=== PATIENT | female | born 1955 | race Caucasian/White ===

== ENCOUNTER → 2020-08-02 | Outpatient (CLI) | payer OTHER ==
--- NOTE | 2020-08-04 10:30 | MM ---
Reason for exam: screening (asymptomatic). Last mammogram was performed 2 years and 7 months ago. History: Patient is postmenopausal. Family history of breast cancer in sister at age 51. Physical Findings: A clinical breast exam by your physician is recommended on an annual basis and results should be correlated with mammographic findings. MG Screening Mammo w CAD Bilateral CC and MLO view(s) were taken. Prior study comparison: January 17, 2018, mammogram. December 16, 2015, mammogram. The breast tissue is heterogeneously dense. This may lower the sensitivity of mammography. Stable lateral right CC asymmetric density. Elongated asymmetric density central left MLO appears more defined/new. ASSESSMENT: Incomplete: need additional imaging evaluation, BI-RAD 0 RECOMMENDATION: Special view mammogram of the left breast. (3D) If lesion persists on supplemental views, image directed ultrasound is recommended. [facility] will attempt to contact patient to return for supplemental views and ultrasound if indicated.
== END | disposition home or self-care (01) ==
LOC: RADMAMWWP 12:41
PROVIDERS: ATTEND Family Medicine
DX: Z12.31 Encounter for screening mammogram for malignant neoplasm of breast (principal)
CPT/HCPCS: 77067

== ENCOUNTER → 2020-08-17 | Outpatient (CLI) | payer OTHER ==
--- NOTE | 2020-08-18 09:00 | MM ---
Reason for exam: additional evaluation requested from abnormal screening. Last mammogram was performed less than 1 month ago. History: Patient is postmenopausal. Family history of breast cancer in sister at age 51. Physical Findings: Nurse did not find any significant physical abnormalities on exam. MG Work Up Mamm w CAD LT XCCM and spot compression MLO view(s) were taken of the left breast. Prior study comparison: August 02, 2020, bilateral MG screening mammo w CAD. January 17, 2018, mammogram. The breast tissue is heterogeneously dense. This may lower the sensitivity of mammography. There is no discrete abnormality including area of concern left MLO view. These results were verbally communicated with the patient and result sheet given to the patient on 08/17/20. ASSESSMENT: Probably benign, BI-RAD 3 RECOMMENDATION: Follow-up diagnostic mammogram of the left breast in 6 months.
== END ==
LOC: RADMAMWWP 14:48
PROVIDERS: ATTEND Family Medicine
DX: Z78.0 Asymptomatic menopausal state (principal)
CPT/HCPCS: 77065

== ENCOUNTER → 2020-09-27 | Day surgery (SDC) | payer OTHER ==
[2020-09-23 14:02] VITALS: BMI 23.1
[~2020-09-27] MED LIST: LACTATED RINGERS 1,000 ML IV SCH; LIDOCAINE 1% (10MG/ML) FOR IV START INTRADERMA PRN; PROPOFOL 10 MG/ML 20 ML VIAL IV ONE
[2020-09-27 08:23] VITALS: RESP 16; TEMP 97.7
--- NOTE | 2020-09-27 08:52 | P.GSHP ---
History of Present Illness H&P Date: 09/27/20 Chief Complaint: Colon cancer screening Patient here today for colonoscopy. Last colonoscopy 5 years ago. No family history of colon cancer no history of polyps. Patient without bowel complaints. Past Medical History Past Medical History: Thyroid Disorder History of Any Multi-Drug Resistant Organisms: None Reported Past Surgical History: Section, Hysterectomy, Tonsillectomy Additional Past Surgical History / Comment(s): Partial Hyst., colonoscopy 5 years ago. Past Anesthesia/Blood Transfusion Reactions: No Reported Reaction Smoking Status: Never smoker - Past Family History Mother Family Medical History: Cancer Additional Family Medical History / Comment(s): Lung Medications and Allergies Home Medications Medication Instructions Recorded Confirmed Type Levothyroxine Sodium [Synthroid] 125 mcg PO DAILY 09/23/20 09/27/20 History [place]-3 Fatty Acids [[place]-3] 1,000 mg PO DAILY 09/23/20 09/27/20 History Turmeric Root Extract [Turmeric] 500 mg PO DAILY 09/23/20 09/27/20 History Vitamin B Complex/Folic Acid 0.4 mg PO DAILY 09/23/20 09/27/20 History [Vitamin B Complex Tablet] Allergies Allergy/AdvReac Type Severity Reaction Status Date / Time No Known Allergies Allergy Verified 09/27/20 08:24 Surgical - Exam Vital Signs Temp Pulse Resp BP Pulse Ox 97.7 F 56 L 16 137/73 92 L 09/27/20 08:22 09/27/20 08:22 09/27/20 08:22 09/27/20 08:22 09/27/20 08:22 Physical exam: General: Well-developed, well-nourished HEENT: Normocephalic, sclerae nonicteric Abdomen: Nontender, nondistended Extremities: No edema Neuro: Alert and oriented Assessment and Plan (1) Colon cancer screening Narrative/Plan: Will proceed with colonoscopy Current Visit: Yes Status: Acute Code(s): Z12.11 - ENCOUNTER FOR SCREENING FOR MALIGNANT NEOPLASM OF COLON SNOMED Code(s): 893434330
--- NOTE | 2020-09-27 09:01 | P.PCN ---
Date of Procedure: 09/27/20 Procedure(s) Performed: PREOPERATIVE DIAGNOSIS: Screening POSTOPERATIVE DIAGNOSIS: Tortuous colon unable to advance beyond mid sigmoid PROCEDURE: Colonoscopy only able to reach mid sigmoid colon ANESTHESIA: MAC SURGEON: Doug Stinson M.D. SPECIMENS: None ENDOSCOPIC PROCEDURE: The patient was placed on the endoscopy table in the left decubitus position. The Olympus colonoscope was inserted into the anus and passed under direct visualization to the mid sigmoid colon. Despite visualizing the lumen quite easily I could not advance the scope given the tortuosity in the colon. Multiple attempts were made. The scope was then withdrawn. No abnormalities were seen throughout the rectum or sigmoid. Digital rectal examination was normal. The patient was taken to the recovery room in stable condition per anesthesia guidelines. RECOMMENDATIONS: Will send patient for barium enema.
[2020-09-27 10:00] VITALS: BP 110/74; PULSE 62
--- NOTE | 2020-09-27 13:51 | FL ---
EXAMINATION TYPE: FL barium enema w air contrast DATE OF EXAM: 09/27/2020 COMPARISON: NONE HISTORY: Change in bowel habits. TECHNIQUE: Barium and air were instilled into the colon from the rectum to the cecum. Multiple spot and overhead images are obtained. FINDINGS: I do not see evidence for annular constricting lesion or fungating mass. No polypoid lesio ns are identified. Mucosal fold pattern has a normal appearance. No evidence for inflammatory bowel disease. Normal-appearing appendix which is retrocecal. No significant diverticular disease. IMPRESSION: No significant abnormality identified at this time.
== END ==
LOC: ORWHC2ENDO 08:01
PROVIDERS: ATTEND Surgery
DX: Z12.11 Encounter for screening for malignant neoplasm of colon (principal); K63.89 Other specified diseases of intestine; E07.9 Disorder of thyroid, unspecified; Z80.1 Family history of malignant neoplasm of trachea, bronchus and lung; Z79.890 Hormone replacement therapy
CPT/HCPCS: 74280; J2704; G0121; 45378

== ENCOUNTER 2021-04-26 17:19 | Emergency (ER) | payer OTHER ==
[2021-04-26 17:39] VITALS: TEMP 98.7
[2021-04-26] MEDS ORDERED: SODIUM CHLORIDE 0.9% 500 ML 500 ML IV ONE (19:59)
[2021-04-26] MEDS ORDERED: KETOROLAC 30 MG/ML 1 ML VIAL IVP STA (19:59)
--- NOTE | 2021-04-26 20:02 | ED ---
General Adult HPI - General Chief complaint: Upper Respiratory Infection Stated complaint: Covid+/Wants antibodies Time Seen by Provider: 04/26/21 19:15 Source: patient Mode of arrival: ambulatory Limitations: no limitations - History of Present Illness Initial comments: 65-year-old female patient presents to the emergency department today for antibody infusion after testing positive for COVID-19 her primary care physician's office. Patient states she's been having symptoms for the last 3 days. Symptoms include headache, body aches, shortness of breath, and lack of appetite. Denies any loss of taste or smell. Denies any vomiting or diarrhea. Denies any fever. She states she has been using essential oils and taking her Synthroid as directed. No other medications. - Related Data Home Medications Medication Instructions Recorded Confirmed Levothyroxine Sodium [Synthroid] 125 mcg PO DAILY 09/23/20 09/27/20 [place]-3 Fatty Acids [[place]-3] 1,000 mg PO DAILY 09/23/20 09/27/20 Turmeric Root Extract [Turmeric] 500 mg PO DAILY 09/23/20 09/27/20 Vitamin B Complex/Folic Acid 0.4 mg PO DAILY 09/23/20 09/27/20 [Vitamin B Complex Tablet] Allergies Allergy/AdvReac Type Severity Reaction Status Date / Time No Known Allergies Allergy Verified 04/26/21 17:39 Review of Systems ROS Statement: Those systems with pertinent positive or pertinent negative responses have been documented in the HPI. ROS Other: All systems not noted in ROS Statement are negative. Past Medical History Past Medical History: Thyroid Disorder Additional Past Medical History / Comment(s): Mild asthma History of Any Multi-Drug Resistant Organisms: None Reported Past Surgical History: Section, Hysterectomy, Tonsillectomy Additional Past Surgical History / Comment(s): Partial Hyst., colonoscopy 5 years ago. Past Anesthesia/Blood Transfusion Reactions: No Reported Reaction Past Psychological History: No Psychological Hx Reported Smoking Status: Never smoker Past Alcohol Use History: None Reported Past Drug Use History: None Reported - Past Family History Mother Family Medical History: Cancer Additional Family Medical History / Comment(s): Lung General Exam Limitations: no limitations General appearance: alert, in no apparent distress, other (This is a well- developed, well-nourished adult female patient in no acute distress.) Respiratory exam: Present: normal lung sounds bilaterally. Absent: respiratory distress, wheezes, rales, rhonchi, stridor Cardiovascular Exam: Present: regular rate, normal rhythm, normal heart sounds. Absent: systolic murmur, diastolic murmur, rubs, gallop, clicks GI/Abdominal exam: Present: soft, normal bowel sounds. Absent: distended, tenderness, guarding, rebound, rigid Neurological exam: Present: alert, oriented X3, CN II-XII intact Psychiatric exam: Present: normal affect, normal mood Skin exam: Present: warm, dry, intact, normal color. Absent: rash Course Vital Signs 04/26/21 17:36 Temperature 98.7 F Pulse Rate 91 Respiratory 20 Rate Blood Pressure 110/64 O2 Sat by Pulse 98 Oximetry Medical Decision Making - Medical Decision Making 65-year-old female patient presented to the emergency department requesting antibodies after having a positive COVID-19 test at her doctor's office today. She's been symptomatic for 3 days. She did show proof of positive test. Did discuss risks versus benefits of the infusion. She tolerated well with no difficulties. She'll be discharged. The primary care physician for recheck in 1-2 days. Return parameters discussed in detail. She verbalizes understanding and agrees with this plan. My attending is Dr. Sorensen. - Radiology Data Radiology results: report reviewed, image reviewed Views of the chest are obtained. Report was reviewed in its entirety. Impression by Dr. Arredondo shows normal chest. Disposition Clinical Impression: COVID-19 Disposition: HOME SELF-CARE Condition: Good Instructions (If sedation given, give patient instructions): Coronavirus Disease 2019 (COVID-19) Additional Instructions: Increase fluids. Take, Motrin for pain control. Follow-up with your primary care physician for recheck in 1-2 days. Return for any new, worsening, or concerning symptoms. Is patient prescribed a controlled substance at d/c from ED?: No Referrals: Consuelo Green MD [Primary Care Provider] - 1-2 days
[2021-04-26] MEDS ORDERED: SODIUM CHLORIDE 0.9% 50 ML IVPB ONE (20:45)
[2021-04-26] MEDS ORDERED: BAMLANIVIMAB (EUA) 700 MG, ETESEVIMAB (EUA) 1,400 MG in SODIUM CHLORIDE 0.9% 50 ML IVPB ONE (20:45)
--- NOTE | 2021-04-26 21:25 | XR ---
EXAMINATION TYPE: XR chest 2V DATE OF EXAM: 04/26/2021 COMPARISON: NONE HISTORY: Short of breath TECHNIQUE: 2 views FINDINGS: Heart and mediastinum are normal. Lungs are clear. Diaphragm is normal. Bony thorax is inta ct. IMPRESSION: Normal chest.
[2021-04-26 22:26] VITALS: BP 108/67; PULSE 69; RESP 18
== END 2021-04-26 22:26 | disposition home or self-care (01) ==
LOC: EC 17:19
DX: U07.1 COVID-19 (principal); J45.909 Unspecified asthma, uncomplicated; E07.9 Disorder of thyroid, unspecified; Z79.890 Hormone replacement therapy
CPT/HCPCS: 71046; 99284; 96365; J1885; J3490

== ENCOUNTER → 2021-09-11 | Outpatient (CLI) | payer OTHER ==
--- NOTE | 2021-09-12 08:01 | MM ---
Reason for exam: screening (asymptomatic). Last mammogram was performed 1 year and 1 month ago. History: Patient is postmenopausal. Family history of breast cancer in sister at age 51. Physical Findings: A clinical breast exam by your physician is recommended on an annual basis and results should be correlated with mammographic findings. MG 3D Screening Mammo W/Cad Bilateral CC and MLO view(s) were taken. Prior study comparison: August 17, 2020, left breast MG work up mamm w CAD LT. August 02, 2020, bilateral MG screening mammo w CAD. The breast tissue is heterogeneously dense. This may lower the sensitivity of mammography. There is chronic nodularity in the right breast. There is no dominant lesion. There is no discrete abnormality. No significant changes when compared with prior studies. ASSESSMENT: Benign, BI-RAD 2 RECOMMENDATION: Routine screening mammogram of both breasts in 1 year.
== END | disposition home or self-care (01) ==
LOC: RADMAMWWP 14:53
PROVIDERS: ATTEND Family Medicine
DX: Z12.31 Encounter for screening mammogram for malignant neoplasm of breast (principal)
CPT/HCPCS: 77063; 77067

== ENCOUNTER 2022-03-18 10:16 | Emergency (ER) | payer MEDICARE, OTHER ==
[2022-03-18 10:38] VITALS: RESP 16
[2022-03-18] MEDS ORDERED: MECLIZINE 12.5 MG TAB PO STA (10:48)
[2022-03-18] MEDS ORDERED: METOCLOPRAMIDE 5 MG/ML 2 ML VIAL IVP STA (10:48)
[2022-03-18] MEDS ORDERED: SODIUM CHLORIDE 0.9% 1,000 ML IV STA (10:48)
--- NOTE | 2022-03-18 10:51 | ED ---
General Adult HPI - General Chief complaint: Dizziness Stated complaint: Dizziness Time Seen by Provider: 03/18/22 10:41 Source: patient, family, RN notes reviewed Mode of arrival: ambulatory Limitations: no limitations - History of Present Illness Initial comments: Patient is a pleasant 7 he 6-year-old female presenting to the emergency department dizziness. Onset of symptoms was over a week ago while increased. Patient was on a boat at the time. Patient has had persistent symptoms since then and was hoping they would go away. Patient feels lightheaded as if she is floating. Patient does not feel she is spinning. No confusion. No loss of v ision. No speech or coordination problems. No extremity weakness or loss of sensation. Patient did go to urgent care prior to arrival who recommended a computed tomography scan. - Related Data Home Medications Medication Instructions Recorded Confirmed Levothyroxine Sodium [Synthroid] 125 mcg PO DAILY 09/23/20 09/27/20 [place]-3 Fatty Acids [[place]-3] 1,000 mg PO DAILY 09/23/20 09/27/20 Turmeric Root Extract [Turmeric] 500 mg PO DAILY 09/23/20 09/27/20 Vitamin B Complex/Folic Acid 0.4 mg PO DAILY 09/23/20 09/27/20 [Vitamin B Complex Tablet] Previous Rx's Medication Instructions Recorded Ibuprofen [Motrin] 600 mg PO Q8HR PRN #30 tab 04/26/21 Metoclopramide HCl [Reglan] 10 mg PO Q6HR PRN #15 tablet 03/18/22 Allergies Allergy/AdvReac Type Severity Reaction Status Date / Time No Known Allergies Allergy Verified 03/18/22 10:38 Review of Systems ROS Statement: Those systems with pertinent positive or pertinent negative responses have been documented in the HPI. ROS Other: All systems not noted in ROS Statement are negative. Constitutional: Denies: fever Eyes: Denies: eye pain ENT: Denies: ear pain Respiratory: Denies: cough Cardiovascular: Denies: chest pain Endocrine: Denies: fatigue Gastrointestinal: Denies: abdominal pain Genitourinary: Denies: dysuria Musculoskeletal: Denies: back pain Skin: Denies: rash Neurological: Reports: as per HPI. Denies: headache Past Medical History Past Medical History: Thyroid Disorder Additional Past Medical History / Comment(s): Mild asthma History of Any Multi-Drug Resistant Organisms: None Reported Past Surgical History: Section, Hysterectomy, Tonsillectomy Additional Past Surgical History / Comment(s): Partial Hyst., colonoscopy 5 years ago. Past Anesthesia/Blood Transfusion Reactions: No Reported Reaction Past Psychological History: No Psychological Hx Reported Smoking Status: Never smoker Past Alcohol Use History: None Reported Past Drug Use History: None Reported - Past Family History Mother Family Medical History: Cancer Additional Family Medical History / Comment(s): Lung General Exam Limitations: no limitations General appearance: alert, in no apparent distress Head exam: Present: normocephalic Eye exam: Present: normal appearance, PERRL, EOMI, nystagmus (Minimal horizontal) ENT exam: Present: normal oropharynx Neck exam: Present: normal inspection Respiratory exam: Present: normal lung sounds bilaterally Cardiovascular Exam: Present: regular rate, normal rhythm GI/Abdominal exam: Present: soft. Absent: tenderness Extremities exam: Present: normal inspection Neurological exam: Present: alert, oriented X3, CN II-XII intact. Absent: motor sensory deficit Expanded Neurological exam: Present: protecting the airway Speech: Present: fluid speech Cranial nerves: EOM's Intact: Normal, Facial Sensation: Normal Sensory exam: Upper Extremity Light Touch: Normal, Lower Extremity Light Touch: Normal Motor strength exam: RUE: 5, LUE: 5, RLE: 5, LLE: 5 Eye Response: (4) open spontaneously Motor Response: (6) obeys commands Verbal Response: (5) oriented Psychiatric exam: Present: normal affect, normal mood Skin exam: Present: normal color Course Vital Signs 03/18/22 03/18/22 10:33 12:30 Temperature 97.8 F Pulse Rate 68 69 Respiratory 16 16 Rate Blood Pressure 136/85 108/72 O2 Sat by Pulse 99 96 Oximetry EKG Findings - EKG Comments: EKG Findings:: Psychiatric care if 7. HI 159. QRS 89. QT 419. QTC 414. Normal axis. Normal QRS. No acute ST change. Medical Decision Making - Medical Decision Making Patient reevaluated and doing much better. Patient and family updated on results. Also updated need for follow-up. - Lab Data Result diagrams: 03/18/22 11:14 03/18/22 11:14 Lab Results 03/18/22 03/18/22 03/18/22 Range/Units 11:14 11:14 11:14 WBC 6.2 (3.8-10.6) k/uL RBC 4.84 (3.80-5.40) m/uL Hgb 14.8 (11.4-16.0) gm/dL Hct 44.3 (34.0-46.0) % MCV 91.6 (80.0-100.0) fL MCH 30.5 (25.0-35.0) pg MCHC 33.3 (31.0-37.0) g/dL RDW 13.0 (11.5-15.5) % Plt Count 238 (150-450) k/uL MPV 8.6 Neutrophils % 53 % Lymphocytes % 37 % Monocytes % 7 % Eosinophils % 1 % Basophils % 1 % Neutrophils # 3.3 (1.3-7.7) k/uL Lymphocytes # 2.3 (1.0-4.8) k/uL Monocytes # 0.4 (0-1.0) k/uL Eosinophils # 0.1 (0-0.7) k/uL Basophils # 0.0 (0-0.2) k/uL PT 10.2 (9.0-12.0) sec INR 0.9 (<1.2) APTT 21.6 L (22.0-30.0) sec Sodium 138 (137-145) mmol/L Potassium 4.1 (3.5-5.1) mmol/L Chloride 104 (98-107) mmol/L Carbon Dioxide 25 (22-30) mmol/L Anion Gap 9 mmol/L BUN 15 (7-17) mg/dL Creatinine 0.64 (0.52-1.04) mg/dL Est GFR (CKD-EPI)AfAm >90 (>60 ml/min/1.73 sqM) Est GFR (CKD-EPI)NonAf >90 (>60 ml/min/1.73 sqM) Glucose 89 (74-99) mg/dL Calcium 9.2 (8.4-10.2) mg/dL Total Bilirubin 0.5 (0.2-1.3) mg/dL AST 30 (14-36) U/L ALT 19 (4-34) U/L Alkaline Phosphatase 57 (38-126) U/L Total Protein 7.0 (6.3-8.2) g/dL Albumin 4.8 (3.5-5.0) g/dL - Radiology Data Radiology results: report reviewed (CT brain shows atrophy and chronic small vessel disease. No acute abnormality. CT angios reveals no acute abnormality.) Disposition Clinical Impression: Dizziness Disposition: HOME SELF-CARE Condition: Stable Instructions (If sedation given, give patient instructions): Dizziness (ED) Additional Instructions: Prescription for Reglan sent to pharmacy for nausea and dizziness. [id number] Antivert can also be used as needed. Return for confusion, weakness, worsening or change in symptoms or any other concerns. Please do follow-up with your primary care physician in the next day or 2 for recheck. Discussed with primary care physician possible neurology evaluation. Also ENT evaluation, number provided. Prescriptions: Metoclopramide HCl [Reglan] 10 mg PO Q6HR PRN #15 tablet PRN Reason: Nausea Is patient prescribed a controlled substance at d/c from ED?: No Referrals: Sulaiman Hooker MD [STAFF PHYSICIAN] - 1-2 days Luca Constantino MD [STAFF PHYSICIAN] - 1-2 days Time of Disposition: 14:15
[2022-03-18 11:24] LABS: Basophils % (A) 1 %; Eosinophils # (A) 0.1 k/uL (0-0.7); Eosinophils % (A) 1 %; HCT 44.3 % (34.0-46.0); HGB 14.8 gm/dL (11.4-16.0); Lymphocytes # (A) 2.3 k/uL (1.0-4.8); Lymphocytes % (A) 37 %; MCH 30.5 pg (25.0-35.0); MCHC 33.3 g/dL (31.0-37.0); MCV 91.6 fL (80.0-100.0); Mean Platelet Volume 8.6; Monocytes # (A) 0.4 k/uL (0-1.0); Monocytes % (A) 7 %; Neutrophils # (A) 3.3 k/uL (1.3-7.7); Neutrophils % (A) 53 %; Platelet Count 238 k/uL (150-450); RBC 4.84 m/uL (3.80-5.40); WBC 6.2 k/uL (3.8-10.6)
[2022-03-18 11:37] LABS: ALT 19 U/L (4-34); AST 30 U/L (14-36); African American GFR (CKD) >90 (>60 ml/min/1.73 sqM); Albumin 4.8 g/dL (3.5-5.0); Anion Gap 9 mmol/L; Blood Urea Nitrogen 15 mg/dL (7-17); Calcium 9.2 mg/dL (8.4-10.2); Carbon Dioxide 25 mmol/L (22-30); Chloride 104 mmol/L (98-107); Glucose 89 mg/dL (74-99); Non-African American GFR(CKD) >90 (>60 ml/min/1.73 sqM); Potassium 4.1 mmol/L (3.5-5.1); Sodium 138 mmol/L (137-145); Total Bilirubin 0.5 mg/dL (0.2-1.3)
[2022-03-18 11:38] LABS: Alkaline Phosphatase 57 U/L (38-126)
[2022-03-18 12:09] LABS: INR 0.9 (<1.2); Prothrombin Time 10.2 sec (9.0-12.0)
[2022-03-18 12:11] LABS: Partial Thromboplastin Time 21.6 sec (22.0-30.0)
--- NOTE | 2022-03-18 13:44 | CT ---
EXAMINATION TYPE: CT brain wo con DATE OF EXAM: 03/18/2022 COMPARISON: None HISTORY: Dizziness, Nystagmus CT DLP: 1098.9 mGycm Automated exposure control for dose reduction was used. Helical imaging through the brain. FINDINGS: There is no hemorrhage or hydrocephalus. Mild cortical atrophy is noted. Periventricular white matter shows patchy low attenuation. There are cerebral vascular calcifications. Calvarium is intact. Paran orlin sinuses and mastoid air cells as visualized are normal. Orbits show symmetric appearance. IMPRESSION: NO ACUTE BRAIN ABNORMALITY. AGE-RELATED CHANGES OF ATROPHY AND CHRONIC SMALL VESSEL ISCHEMIA..
--- NOTE | 2022-03-18 13:56 | CT ---
EXAMINATION TYPE: CT angio head neck DATE OF EXAM: 03/18/2022 HISTORY: Dizziness, Nystagmus COMPARISON: CT DLP: 359.20 mGycm. Automated Exposure Control for Dose Reduction was Utilized. TECHNIQUE: CTA scan of the head and neck is performed without and with IV Contrast, patient injected with 65 ml mL of Isovue 370, axial images are obtained, coronal and sagittal reformatted images are reviewed. 3D reconstructed images are created on an independent workstation and reviewed. FINDINGS: Lung apices are within normal limits. Carotid/Vascular Structures: There are 3 super aortic branch vessels. The innominate, left and right subclavian, left and right common carotid, left and right vertebral arteries are patent. Vertebral ar teries are codominant. Internal and external carotid arteries are patent, no significant stenosis. Within the brain the anterior and posterior circulations are intact. There is no evident dissection, embolus, aneurysm, or stenosis. Other: Mild degenerative disc changes in the visualized cervical spine. IMPRESSION: No significant abnormality is seen. NASCET criteria was used in interpretation of this exam?
[2022-03-18 14:35] VITALS: BP 128/78; PULSE 78; TEMP 98.2
== END 2022-03-18 14:31 | disposition home or self-care (01) ==
LOC: EC 10:16
DX: R42 Dizziness and giddiness (principal); E07.9 Disorder of thyroid, unspecified; Z79.899 Other long term (current) drug therapy
CPT/HCPCS: 99284 ×2; 96374 ×2; 96361 ×2; 36415; 93005; 80053; 85025; 85610; 85730; 70496; 70450; 70498; J2765; Q9967

== ENCOUNTER → 2023-01-04 | Outpatient (CLI) | payer MEDICARE, OTHER ==
--- NOTE | 2023-01-07 13:55 | MM ---
Reason for Exam: Screening (asymptomatic). Last mammogram was performed 1 year(s) and 4 month(s) ago. Patient History: Menarche at age 13. First Full-Term at age 21. Right ovary removed at age 41. Hysterectomy at age 41. Postmenopausal. Sister had breast cancer, age 51. Risk Values: Meseret 5 year model risk: 3.2%. NCI Lifetime model risk: 11.3%. Prior Study Comparison: 08/02/2020 Bilateral Screening Mammogram, [facility]. 08/17/2020 Left Diagnostic Mammogram, [facility]. 09/11/2021 Bilateral Screening Mammogram, [facility]. Tissue Density: The breast tissue is heterogeneously dense. This may lower the sensitivity of mammography. Findings: Analyzed By CAD. Pattern appears symmetrical stable. No significant interval changes are evident. No suspicious groups of microcalcifications, spiculated or lobular masses, architectural distortion or other secondary signs of malignancy are mammographically apparent. Overall Assessment: Negative, BI-RAD 1 Management: Screening Mammogram of both breasts in 1 year. A negative mammogram report should not preclude additional follow up of suspicious palpable abnormalities. Patient should continue monthly self breast exam. A clinical breast exam by your physician is recommended on an annual basis and results should be correlated with mammographic findings. Electronically signed and approved by: Leandro Carrington D.O. Radiologis
== END | disposition home or self-care (01) ==
LOC: RADMAMWWP 10:29
PROVIDERS: ATTEND Family Medicine
DX: Z12.31 Encounter for screening mammogram for malignant neoplasm of breast (principal); Z78.0 Asymptomatic menopausal state; Z80.3 Family history of malignant neoplasm of breast
CPT/HCPCS: 77067

== ENCOUNTER → 2023-01-18 | Outpatient (CLI) | payer MEDICARE, OTHER ==
--- NOTE | 2023-01-18 10:03 | US ---
EXAMINATION TYPE: US abdomen complete DATE OF EXAM: 01/18/2023 COMPARISON: NONE CLINICAL INDICATION: Female, 67 years old with history of R93.89 ABNORMAL FINDINGS ON DX IMAGING OF O TH BODY; abnormal outside x-ray of lumbar spine shows rt renal cyst TECHNIQUE: Multiple sonographic images of the abdomen are obtained. FINDINGS: EXAM MEASUREMENTS: Liver Length: 14.5 cm Gallbladder Wall: 0.2 cm CBD: 0.2 cm Spleen: 10.5 cm Right Kidney: 8.3x3.9x5.1 cm Left Kidney: 8.7x4.0x4.3 cm PAPER TUBE GRADER NOTES: Pancreas: Tail obscured by overlying bowel gas Liver: wnl Gallbladder: wnl, not overly distended Evidence for sonographic Woods's sign: No CBD: wnl Spleen: wnl Right Kidney: small cystic area measured at mid/lateral kidney: 0.7x0.7x0.6cm Left Kidney: wnl Upper IVC: wnl Abd Aorta: wnl exam slightly limited by bowel gas The liver is homogenous. The intrahepatic portion of the IVC and proximal abdominal aorta are within normal limits. There is no evidence of cholelithiasis. Common bile duct is unremarkable. The visu alized portions of the pancreas are homogenous. The spleen is unremarkable. Kidneys are symmetric a nd free of hydronephrosis. Small cyst right kidney. IMPRESSION: Small cyst right kidney. Otherwise unremarkable study.
--- NOTE | 2023-01-18 10:04 | US ---
EXAMINATION TYPE: US pelvic complete DATE OF EXAM: 01/18/2023 COMPARISON: NONE CLINICAL INDICATION: Female, 67 years old with history of R93.89 ABNORMAL XRAY; ABNORMAL X-RAY, RT RE NAL CYST. PT HAD PARTIAL HYSTERECTOMY, BELIEVES SHE HAS BILATERAL OVARIES BUT UNSURE TECHNIQUE: Transabdominal (TA). Transabdominal sonographic images of the pelvis were acquired. PAT IENT DECLINES TV EXAM AT THIS TIME Date of LMP: POST ERIC AFTER HYSTERECTOMY 15-20YRS AGO EXAM MEASUREMENTS: Uterus: Surgically absent cm Endometrial Stripe: Surgically absent cm Right Ovary: NOT VISUALIZED cm Left Ovary: NOT VISUALIZED cm 1. Uterus: Surgically absent 2. Endometrium: Surgically absent 3. Right Ovary: Obscured by overlying bowel gas 4. Left Ovary: Obscured by overlying bowel gas 5. Bilateral Adnexa: Obscured by overlying bowel gas 6. Posterior cul-de-sac: wnl Vaginal cuff and bilateral adnexa imaged, limited exam due to overlying bowel gas IMPRESSION: Unremarkable postoperative pelvis.
== END | disposition home or self-care (01) ==
LOC: RADUSWWP 07:35
PROVIDERS: ATTEND Family Medicine
DX: N28.1 Cyst of kidney, acquired (principal); R93.89 Abnormal findings on diagnostic imaging of other specified body structures
CPT/HCPCS: 76700; 76856

== ENCOUNTER → 2024-01-06 | Outpatient (CLI) | payer MEDICARE ==
--- NOTE | 2024-01-29 19:02 | MM ---
Reason for Exam: Screening (asymptomatic). Last screening mammogram was performed 12 month(s) ago. Patient History: Menarche at age 13. First Full-Term at age 21. Right ovary removed at age 41. Hysterectomy at age 41. Postmenopausal. Sister had breast cancer, age 51. Risk Values: Meseret 5 year model risk: 3.2%. NCI Lifetime model risk: 10.8%. Prior Study Comparison: 08/17/2020 Left Diagnostic Mammogram, [facility]. 09/11/2021 Bilateral Screening Mammogram, [facility]. 01/04/2023 Bilateral MG screening mammo w CAD, [facility]. Tissue Density: The breasts are heterogeneously dense, which may obscure small masses. Findings: Analyzed By CAD. There is no suspicious group of microcalcifications or new suspicious mass in either breast. Overall Assessment: Negative, BI-RAD 1 Management: Screening Mammogram of both breasts in 1 year. See note below in regards to patient's increased 5 year Meseret score . Patient should continue monthly self-breast exams. A clinical breast exam by your physician is recommended on an annual basis. This exam should not preclude additional follow-up of suspicious palpable abnormalities. Note on Meseret scores and lifetime risk: 1. A Meseret score greater than 3% is considered moderate risk. If this is the case, consider specialist referral to assess eligibility for a risk reducing agent. 2. If overall lifetime risk for the development of breast cancer is 20% or higher, the patient may qualify for future screening with alternating mammogram and breast MRI. Electronically signed and approved by: Mary Crisostomo M.D. Radiologist
== END | disposition home or self-care (01) ==
LOC: RADMAMWWP 13:44
PROVIDERS: ATTEND Family Medicine
DX: Z12.31 Encounter for screening mammogram for malignant neoplasm of breast (principal); Z78.0 Asymptomatic menopausal state; Z80.3 Family history of malignant neoplasm of breast; R92.333 Mammographic heterogeneous density, bilateral breasts
CPT/HCPCS: 77063; 77067